=== PATIENT | female | born 1980 | race Caucasian/White ===

== ENCOUNTER 2017-04-08 12:44 | Emergency (ER) | payer OTHER ==
[~2017-04-08] VITALS: Ht 154.9 cm; Wt 45.4 kg
[~2017-04-08 12:44] MED LIST: AMOXICILLIN500 M1 PO; BACTRIM DS TABL1 TA1 PO; CELEXA PO; KLONOPIN PO; NO MEDICATIONS; ROBITUSSIN AC PO; SEROQUEL PO; ZUBSOLV PO
== END 2017-04-08 13:33 | disposition home or self-care (01) ==
LOC: SED 12:44
DX: H60.12 Cellulitis of left external ear (principal); F17.200 Nicotine dependence, unspecified, uncomplicated
CPT/HCPCS: 99283